=== PATIENT | female | born 1960 | race Caucasian/White ===

== ENCOUNTER 2017-02-28 10:17 | Day surgery (SDC) | payer MEDICAID ==
[2017-02-28] MEDS ORDERED: PROPOFOL 10 MG/ML VIAL IV ONE (14:00)
[2017-02-28] MEDS ORDERED: LIDOCAINE 2% MDV (20MG/ML) 20ML VIAL IV ONE (14:00)
[2017-02-28] MEDS ORDERED: MIDAZOLAM HCL 2MG/2ML VIAL IV ONE (14:00)
--- NOTE | 2017-03-04 10:00 | Operative Note ---
DATE OF SURGERY: 02/28/2017 OPERATION: Incomplete COLONOSCOPY to the level of the distal transverse colon. PREOPERATIVE DIAGNOSIS: Hematochezia and personal history of polyps. POSTOPERATIVE DIAGNOSIS: Inadequate preparation, procedure terminated. ESTIMATED BLOOD LOSS: None. PREPARATION QUALITY: Inadequate. SPECIMENS: None. PROCEDURE: After informed consent was obtained from the patient, she was placed in the left lateral decubitus position in the endoscopy suite, sedated and monitored by the department of anesthesia. Digital rectal exam was unremarkable. A well-lubricated [id number] colonoscope was inserted into the rectum and advanced to the distal transverse colon. The preparation quality was poor. Despite rinsing and lavaging, I was unable to clear the field adequately to advance the colonoscope, and as a result, the colonoscope was removed from the patient. Stool and liquid and air were evacuated as best as possible. It was felt that further attempts would not be helpful and perhaps may even be dangerous. The patient was taken into a room to recover. RECOMMENDATIONS: We will plan on repeating her exam with a 2-day prep. As always, thank you for allowing me to participate in the healthcare of your patients. Scot Blue DO CC: Dr. Swati JENKINS
== END 2017-02-28 12:12 | disposition home or self-care (01) ==
LOC: HOP 10:17
PROVIDERS: ATTEND Internal Medicine Gastroenterology
DX: K92.1 Melena (principal); Z86.010 Personal history of colon polyps; E03.9 Hypothyroidism, unspecified; E78.00 Pure hypercholesterolemia, unspecified

== ENCOUNTER 2017-03-28 09:54 | Day surgery (SDC) | payer MEDICAID ==
[2017-03-28] MEDS ORDERED: PROPOFOL 10 MG/ML VIAL IV ONE (14:00)
[2017-03-28] MEDS ORDERED: MIDAZOLAM HCL 2MG/2ML VIAL IV ONE (14:00)
--- NOTE | 2017-03-30 11:58 | Operative Note ---
DATE OF SURGERY: 03/28/2017 OPERATION: Incomplete COLONOSCOPY to mid transverse colon. PREOPERATIVE DIAGNOSIS: Hematochezia, history of polyps. POSTOPERATIVE DIAGNOSIS: Fair prep with extremely redundant and tortuous colon. PROCEDURE: After informed consent was obtained from the patient, she was placed in the left lateral decubitus position in the endoscopy suite, sedated and monitored by the department of anesthesia. Digital rectal exam revealed non-thrombosed external hemorrhoids. A well-lubricated [id number] colonoscope was inserted into the rectum and advanced to what appeared to be the mid transverse colon. The colon was extremely tortuous. Preparation quality was fair with significant volume of liquid needing to be aspirated. There was particulate matter as well. Despite rinsing, there was still residual particulate matter. Transabdominal pressure was utilized, as was changing the patient to the supine position. Despite this and the prep, I was unable to advance the endoscope proximal to the mid transverse colon. The endoscope was then retracted from the patient. RECOMMENDATIONS: I would suggest she consider undergoing a repeat exam tomorrow. I would suggest we do this at the [facility] if she is amenable. If she does not want to pursue further exams, then perhaps a barium enema would be worthwhile. At this point, however, I believe that additional preparation and attempted exam would be reasonable. I will discuss the matter further with her in the recovery area. As always, thank you for allowing me to participate in the healthcare of your patients. CC: MARJORIE Rodriguez
== END 2017-03-28 13:10 | disposition home or self-care (01) ==
LOC: HOP 09:54
PROVIDERS: ATTEND Internal Medicine Gastroenterology
DX: Z86.010 Personal history of colon polyps (principal); E78.00 Pure hypercholesterolemia, unspecified; E03.9 Hypothyroidism, unspecified

== ENCOUNTER → 2017-09-12 | Day surgery (SDC) | payer MEDICAID ==
[~2017-09-12] MED LIST: LIDOCAINE 2% MDV (20MG/ML) 20ML VIAL IV ONE; MIDAZOLAM HCL 2MG/2ML VIAL IV ONE; PROPOFOL 10 MG/ML VIAL IV ONE
--- NOTE | 2017-09-13 12:40 | Operative Note ---
DATE OF SURGERY: 09/12/2017 OPERATION: COLONOSCOPY with biopsy, polypectomy, hemoclip application. PREOPERATIVE DIAGNOSIS: History of polyp seen on CT colonography. POSTOPERATIVE DIAGNOSES: 1. Extremely redundant colon. 2. Suspected distal transverse colon lipoma. 3. Proximal transverse colon polyp. PREPARATION QUALITY: Good to excellent. ESTIMATED BLOOD LOSS: Minimal. SPECIMENS: Proximal transverse colon polyp, distal transverse colon lipoma. PROCEDURE: After informed consent was obtained from the patient, she was placed in the left lateral decubitus position in the endoscopy suite, sedated and monitored by the department of anesthesia. Digital rectal exam was unremarkable. A well-lubricated [id number] colonoscope was inserted into the rectum and advanced into the descending colon. The colon was extremely tortuous and redundant. I was able to use sigmoid loop reduction numerous times as well as transverse colon loop reduction numerous times. In addition, the patient required transabdominal pressure as well as placing her on her back several times. Ultimately, I was able to advance the endoscope to the level of the cecum. Preparation quality was good to excellent. The cecum was unremarkable. The ileocecal valve was unremarkable. The ascending colon was unrevealing. In the proximal transverse colon, there was noted to be an 8-9 mm sessile polyp. This initially was biopsied for removal but given its size, a snare was then utilized without current. A hemoclip was applied to the site for wound closure. The polyp was retrieved. In the distal transverse colon, there was a sessile somewhat raised area that had a yellow discoloration suspicious for a lipoma, which was in the area of the suspected abnormality seen on the CT colon. This area was biopsied multiple times with unroofing of adipose-appearing tissue. The remainder of the transverse colon was inspected. No other lesions were readily identified. Once again, the colon was quite tortuous and had significant looping making maintaining position extremely difficult. Nonetheless, upon insertion and retraction of the scope, no other lesion was seen in the area in question. The descending colon, sigmoid colon, and rectum were unremarkable. J-turn views of the anorectum unrevealing. The endoscope was straightened, the rectal ampulla deflated, and the endoscope was removed. RECOMMENDATIONS: I would suggest the patient resume her medications and diet. As far as further surveillance recommendations, this will be discussed with the patient but perhaps a repeat CT colonography in 1 year would be worthwhile as opposed to repeating a colonoscopy. As always, thank you for allowing me to participate in the healthcare of your patients. CC: Acacia JENKINS
== END | disposition home or self-care (01) ==
LOC: HOP 09:31
PROVIDERS: ATTEND Internal Medicine Gastroenterology
DX: R93.3 Abnormal findings on diagnostic imaging of other parts of digestive tract (principal); D17.9 Benign lipomatous neoplasm, unspecified; D12.3 Benign neoplasm of transverse colon; E78.00 Pure hypercholesterolemia, unspecified; F32.9 Major depressive disorder, single episode, unspecified

== ENCOUNTER 2019-05-01 17:05 | Emergency (ER) | payer MEDICAID ==
[2019-05-01] MEDS ORDERED: ACETAMINOPHEN 325 MG TAB PO ONE (17:26)
--- NOTE | 2019-05-01 17:30 | Emergency Department Record ---
History of Present Illness - General Chief complaint: Lower Extremity Pain Stated complaint: LEFT LEG PAIN Time Seen by Provider: 05/01/19 17:18 Source: Patient Mode of Arrival: Ambulatory Limitations: No limitations - History of Present Illness Initial comments: The patient is here due to L leg pain for 3 hours. She tripped while walking and twisted the L leg and had the sudden onset of L calf pain. She did feel a "pop" in the calf at the time of the injury. She is able to walk on it with pain. There has been no weakness or numbness or thigh pain.. The patient denies any ankle pain or weakness. MD Complaint: Extremity pain Onset/Timin -: Hour(s) Location: Left, Lower Leg Severity scale (1-10): 5 Quality: Burning Consistency: Constant Improves with: Nothing Worsens with: Nothing - Related Data Allergies Allergy/AdvReac Type Severity Reaction Status Date / Time adhesive Allergy BLISTERS Verified 05/01/19 17:18 morphine Allergy HIVES Verified 05/01/19 17:18 Travel Screening - Travel/Exposure Within Last 30 Days Have you traveled within the last 30 days?: No - Travel/Exposure Within Last Year Have you traveled outside the [place] in the last year?: Yes Location Detail:: [place] - Additonal Travel Details Have you been exposed to anyone with a communicable illness?: No - Travel Symptoms Symptom Screening: None Review of Systems Constitutional: Denies: Chills, Fever Eyes: Denies: Eye discharge ENT: Denies: Congestion Respiratory: Denies: Cough, Dyspnea Past Medical History - SOCIAL HISTORY Smoking Status: Former smoker Alcohol Use: None Drug Use: None - RESPIRATORY Hx Respiratory Disorders: Yes Hx Sleep Apnea: Yes Hx of CPAP: Yes - CARDIOVASCULAR Hx Cardio Disorders: Yes Comment:: high cholesterol - NEURO Hx Neuro Disorders: No - GI Hx GI Disorders: Yes Hx Reflux: Yes Hx Rectal Bleeding: Yes Hx of Polyps: Yes Comment:: c/o constipation - Hx Genitourinary Disorders: Yes Hx Bladder Problem: Yes (improved since sx) - ENDOCRINE Hx Endocrine Disorders: Yes Hx Thyroid Disease: Yes - MUSCULOSKELETAL Hx Musculoskeletal Disorders: Yes - PSYCH Hx Psych Problems: Yes Hx Anxiety: Yes Hx Depression: Yes Comment:: nervous breakdown-1998 - HEMATOLOGY/ONCOLOGY Hx Hematology/Oncology Disorders: Yes Hx Anemia: Yes Hx Blood Transfusions: No Family Medical History Any Significant Family History?: No Hx Dementia: Father Hx Diabetes: Father Hx Heart Disease: Father, Brother/Sister Hx HTN: Father, Mother Hx Stroke: Father Physical Exam - General General Appearance: Alert, Oriented x3, Cooperative, No acute distress - Head Head exam: Atraumatic, Normocephalic, Normal inspection - Eye Eye exam: Normal appearance, PERRL, EOMI - Extremities Extremities exam: Normal inspection, Calf tenderness (L only.), Full ROM, Normal capillary refill, Tenderness (There is very reproducible L calf tenderness. There is no appreciable swelling, bruising, or erythema.), Other (The L DP pulse is 2+. ). negative: Joint swelling Course Vital Signs 05/01/19 17:11 Temperature 98.2 F Pulse Rate 80 Respiratory 16 Rate Blood Pressure 180/79 Pulse Ox 98 - Reevaluation(s) Reevaluation #1: The patient is doing Ok at this time. Her xrays were neg. I did discuss the fact that I feel the cause of her pain is most likely a plantaris muscle rupture. The patient is to ice and elevate the L leg and to take Tylenol for pain. She is to see her PCP next week for recheck if not better and to return to the ER for any worsening symptoms. 05/01/19 18:02 Medical Decision Making - Data Complexity MDM Data: X-Ray Ordered and/or Reviewed - Radiology Data Radiology results: Report reviewed (L lower leg: Neg) Disposition Disposition: Discharge Clinical Impression: Rupture of plantaris tendon Qualifiers: Encounter type: initial encounter Laterality: left Qualified Code(s): S96.812A - Strain of other specified muscles and tendons at ankle and foot level, left foot, initial encounter Disposition: Home, Self-Care Condition: (2) Stable Instructions: Tendon Rupture (ED) Additional Instructions: Please keep the colette wrap on the L calf and use ice on the area when possible while elevating the leg. Use Tylenol for pain. Please see your family doctor next week if not better and return to the ER for any worsening symptoms. Forms: Patient Portal Access Time of Disposition: 18:05 Quality - Quality Measures Quality Measures: N/A - Blood Pressure Screening View Details: Yes Does Patient Have Any of the Following: No Blood Pressure Classification: Hypertensive Reading Systolic Measurement: 180 Diastolic Measurement: 79 Screening for High Blood Pressure: < First Hypertensive BP, F/U Documented > [G8950] First Hypertensive Follow-up Interventions: Referral to alternative/primary care provider.
--- NOTE | 2019-05-01 18:26 | Emergency Department Record ---
History of Present Illness - General Chief complaint: Lower Extremity Pain Stated complaint: LEFT LEG PAIN Time Seen by Provider: 05/01/19 17:18 Source: Patient Mode of Arrival: Ambulatory Limitations: No limitations - History of Present Illness Onset/Timin -: Hour(s) Location: Left, Lower Leg Severity scale (1-10): 5 Quality: Burning Consistency: Constant Improves with: Nothing Worsens with: Nothing - Related Data Allergies Allergy/AdvReac Type Severity Reaction Status Date / Time adhesive Allergy BLISTERS Verified 05/01/19 17:18 morphine Allergy HIVES Verified 05/01/19 17:18 Travel Screening - Travel/Exposure Within Last 30 Days Have you traveled within the last 30 days?: No - Travel/Exposure Within Last Year Have you traveled outside the [place] in the last year?: Yes Location Detail:: [facility] - Additonal Travel Details Have you been exposed to anyone with a communicable illness?: No - Travel Symptoms Symptom Screening: None Review of Systems Constitutional: Denies: Chills, Fever Eyes: Denies: Eye discharge ENT: Denies: Congestion Respiratory: Denies: Cough, Dyspnea Past Medical History - SOCIAL HISTORY Smoking Status: Former smoker Alcohol Use: None Drug Use: None - RESPIRATORY Hx Respiratory Disorders: Yes Hx Sleep Apnea: Yes Hx of CPAP: Yes - CARDIOVASCULAR Hx Cardio Disorders: Yes Comment:: high cholesterol - NEURO Hx Neuro Disorders: No - GI Hx GI Disorders: Yes Hx Reflux: Yes Hx Rectal Bleeding: Yes Hx of Polyps: Yes Comment:: c/o constipation - Hx Genitourinary Disorders: Yes Hx Bladder Problem: Yes (improved since sx) - ENDOCRINE Hx Endocrine Disorders: Yes Hx Thyroid Disease: Yes - MUSCULOSKELETAL Hx Musculoskeletal Disorders: Yes - PSYCH Hx Psych Problems: Yes Hx Anxiety: Yes Hx Depression: Yes Comment:: nervous breakdown-1998 - HEMATOLOGY/ONCOLOGY Hx Hematology/Oncology Disorders: Yes Hx Anemia: Yes Hx Blood Transfusions: No Family Medical History Any Significant Family History?: No Hx Dementia: Father Hx Diabetes: Father Hx Heart Disease: Father, Brother/Sister Hx HTN: Father, Mother Hx Stroke: Father Physical Exam - General Limitations: No limitations - Extremities Image of Full Body: 1 - Area of pain and tenderness. There is no obvious gastrocnemius muscle rupture. The achilles tendon is clearly intact with normal L foot plantar- flexion. Course Vital Signs 05/01/19 17:11 Temperature 98.2 F Pulse Rate 80 Respiratory 16 Rate Blood Pressure 180/79 Pulse Ox 98 Disposition Clinical Impression: Rupture of plantaris tendon Qualifiers: Encounter type: initial encounter Laterality: left Qualified Code(s): S96.812A - Strain of other specified muscles and tendons at ankle and foot level, left foot, initial encounter Disposition: Home, Self-Care Condition: (2) Stable Instructions: Tendon Rupture (ED) Additional Instructions: Please keep the colette wrap on the L calf and use ice on the area when possible while elevating the leg. Use Tylenol for pain. Please see your family doctor next week if not better and return to the ER for any worsening symptoms. Forms: Patient Portal Access Quality - Quality Measures Quality Measures: N/A - Blood Pressure Screening View Details: Yes Does Patient Have Any of the Following: No Blood Pressure Classification: Hypertensive Reading Systolic Measurement: 180 Diastolic Measurement: 79 Screening for High Blood Pressure: < First Hypertensive BP, F/U Documented > [G8950] First Hypertensive Follow-up Interventions: Referral to alternative/primary care provider.
--- NOTE | 2019-05-03 20:43 | RADIOLOGY REPORT ---
EXAM: LOWER LEG, LEFT HISTORY: CALF/LOWER LEG PAIN AFTER TRIP. TECHNIQUE: Two views of the left lower leg. COMPARISON: None. FINDINGS: No acute fracture is seen. Limited characterization of the adjacent knee and ankle, no obvious dislocation. No radiopaque foreign bodies. IMPRESSION: NO ACUTE OSSEOUS FINDINGS. JOB NUMBER: [id number] MTDD
== END 2019-05-01 18:31 | disposition home or self-care (01) ==
LOC: ER 17:05
DX: S96.812A Strain of other specified muscles and tendons at ankle and foot level, left foot, initial encounter (principal); W18.40XA Slipping, tripping and stumbling without falling, unspecified, initial encounter; Y93.01 Activity, walking, marching and hiking; Z87.891 Personal history of nicotine dependence
CPT/HCPCS: 99283